=== PATIENT | female | born 1990 | race American Indian/Alaskan Native ===

== ENCOUNTER 2017-08-01 18:28 | Emergency (ER) | payer OTHER ==
[2017-08-01 18:42] VITALS: BP 143/95
[2017-08-01] MEDS ORDERED: ASPIRIN PO ONE (18:43)
[2017-08-01 19:41] LABS: Hematocrit 45.1 % (30.3-42.9); Mean Corpuscular HGB Conc 33 % (30-34); Mean Corpuscular Hemoglobin 31 pg (28-32); Mean Corpuscular Volume 92 fl (79-97); Platelet Count 202 K/mm3 (140-440); Red Blood Count 4.88 M/mm3 (3.65-5.03); Red Cell Distribution Width 13.1 % (13.2-15.2)
[2017-08-01 20:15] LABS: Basophils % (Manual) 0 % (0.0-1.8); Eosinophils % (Manual) 0 % (0.0-4.3); Total Cells Counted 100
[2017-08-01 20:16] LABS: Platelet Clumps Rare; Platelet Estimate Consistent w Auto; RBC Morphology Normal
[2017-08-01 20:22] LABS: BUN/Creatinine Ratio 7; Blood Urea Nitrogen 7 mg/dL (7-17); Calcium 9.2 mg/dL (8.4-10.2); Hemolysis Index 13
--- NOTE | 2017-08-01 20:42 | XRay Report ---
FINAL REPORT PROCEDURE: XR CHEST ROUTINE 2V TECHNIQUE: PA and lateral chest radiographs were obtained. CPT 74539 HISTORY: cough with chest pain COMPARISON: No prior studies are available for comparison. FINDINGS: Heart: Normal. Mediastinum/Vessels: Normal. Lungs/Pleural space: Normal. Bony thorax: No acute osseous abnormality. Other: IMPRESSION: Normal examination.
== END 2017-08-01 23:30 | disposition left against medical advice (07) ==
LOC: ED 18:28
DX: R07.9 Chest pain, unspecified (principal); Z53.21 Procedure and treatment not carried out due to patient leaving prior to being seen by health care provider
CPT/HCPCS: 36415; 71046; 80048; 84484; 85007; 85025; 93005; 93010

== ENCOUNTER 2021-12-05 14:41 | Emergency (ER) | payer SELFPAY | END 2021-12-05 15:00 | disposition left against medical advice (07) | LOC: ED 14:41 | DX: K08.89 Other specified disorders of teeth and supporting structures (principal); Z53.21 Procedure and treatment not carried out due to patient leaving prior to being seen by health care provider ==